=== PATIENT | female | born 1990 | race Hispanic/Latino ===

== ENCOUNTER 2021-02-26 19:53 | Emergency (ER) | payer MEDICAID ==
--- NOTE | 2021-02-26 23:39 | Emergency Department Report ---
ED General Adult HPI - General Chief complaint: Headache Stated complaint: RIGHT HIP PAIN Time Seen by Provider: 02/26/21 23:07 Source: patient Mode of arrival: Ambulatory Limitations: No Limitations - History of Present Illness Initial comments: Patient is a 31-year-old female who presents emergency room with complaints of headache and hip pain. Patient states her headaches been going on for 1 day. Patient states she has not tried any [id number] medication. Patient states that her hip pain is been going on for 3 months. Patient states she is never seen Ortho. Patient denies blurry vision. Patient denies neck pain. Patient denies fever and chills. Patient denies light sensitivity. Patient states that her headache is frontal. Patient denies nausea and vomiting. Patient denies visual changes. Patient states that her headache is a 3 out of 10. Patient states that her pain is a 4 out of 10. Patient states that her hip pain is better with rest and worse with movement. Patient states she is also having hip pain because she is been trying to walk more lately in order to lose weight. Patient states she has been under a lot of stress lately. Patient states she was at [place] to be placed into a jail but the jail kicked her out today. Patient dates she is been there for a week and a half. Patient states that she really came to the hospital because she needs a place to stay in some help getting into a jail. Patient states that the hip pain and headache are not that bad but she needed a reason to have the ambulance bring her to the hospital. Patient denies recent travel. Patient denies recent international travel. Patient denies exposure to the novel coronavirus. Patient denies sick contacts. Patient denies fever and chills. Patient denies cough. Patient denies diarrhea. Patient denies coming in contact with anybody with symptoms of the novel coronavirus. Patient denies suicidal and homicidal ideation. Patient denies hallucinations. -: Sudden Consistency: constant Associated Symptoms: headaches. denies: confusion, chest pain, cough, diaphoresis, fever/chills, loss of appetite, malaise, nausea/vomiting, rash, seizure, shortness of breath, syncope, weakness Treatments Prior to Arrival: none - Related Data Allergies Allergy/AdvReac Type Severity Reaction Status Date / Time ciprofloxacin Allergy Unknown Verified 02/26/21 21:35 ED Review of Systems ROS: Stated complaint: RIGHT HIP PAIN Other details as noted in HPI Constitutional: denies: chills, fever Eyes: denies: eye pain, eye discharge, vision change ENT: denies: ear pain, throat pain Respiratory: denies: cough, shortness of breath, wheezing Cardiovascular: denies: chest pain, palpitations Endocrine: no symptoms reported Gastrointestinal: denies: abdominal pain, nausea, diarrhea Genitourinary: denies: urgency, dysuria, discharge Musculoskeletal: denies: back pain, joint swelling, arthralgia Skin: denies: rash, lesions Neurological: headache. denies: weakness, paresthesias Psychiatric: denies: anxiety, depression, auditory hallucinations, visual hallucinations, homicidal thoughts, suicidal thoughts Hematological/Lymphatic: denies: easy bleeding, easy bruising ED Past Medical Hx - Past Medical History Previous Medical History?: Yes Hx Psychiatric Treatment: Yes (Bipolar/Depression) - Surgical History Past Surgical History?: Yes Hx Cholecystectomy: Yes Additional Surgical History: ovarian cyst removed - Family History Family history: no significant - Social History Smoking Status: Current Some Day Smoker Substance Use Type: None ED Physical Exam - General Limitations: No Limitations General appearance: alert, in no apparent distress - Head Head exam: Present: atraumatic, normocephalic - Eye Eye exam: Present: normal appearance, PERRL Pupils: Present: normal accommodation - ENT ENT exam: Present: mucous membranes moist - Neck Neck exam: Present: normal inspection - Respiratory Respiratory exam: Present: normal lung sounds bilaterally. Absent: respiratory distress - Cardiovascular Cardiovascular Exam: Present: regular rate, normal rhythm. Absent: systolic murmur, diastolic murmur, rubs, gallop - GI/Abdominal GI/Abdominal exam: Present: soft, normal bowel sounds - Extremities Exam Extremities exam: Present: normal inspection, full ROM, normal capillary refill. Absent: tenderness, pedal edema, joint swelling, calf tenderness - Back Exam Back exam: Present: normal inspection, full ROM. Absent: tenderness, CVA tend erness (R), CVA tenderness (L), muscle spasm, paraspinal tenderness - Neurological Exam Neurological exam: Present: alert, oriented X3, CN II-XII intact, normal gait. Absent: abnormal gait, motor sensory deficit - Psychiatric Psychiatric exam: Present: normal affect, normal mood - Skin Skin exam: Present: warm, dry, intact, normal color. Absent: rash ED Course Vital Signs 02/26/21 21:35 Temperature 98.3 F Pulse Rate 78 Respiratory 18 Rate Blood Pressure 128/77 O2 Sat by Pulse 94 Oximetry - Reevaluation(s) Reevaluation #1: I discussed all results and clinical findings with patient. I discussed plan of care with patient. Patient agrees with plan of care. Patient is stable for discharge. Patient will be discharged home. Patient given discharge instructions. Patient voiced understanding of discharge instructions. 02/26/21 23:36 ED Medical Decision Making - Medical Decision Making Patient is a 31-year-old female that presents emergency room with complaints of headache and head pain. Patient states her headaches been for 1 day. Patient states she is under a lot of stress. Patient had pain going on for 3 months. Patient is amatory without difficulty. Patient's neuro exam is negative. Patient states she has nowhere to go because she was kicked out of her jail today. Patient states she really came to the hospital to get help with placement. Patient is medically cleared and will be discharged home. Patient can wait in the emergency room waiting room for a social media analyst consult. A social service consult ordered. Patient not require any further medical treatment. Patient not requiring further emergency medical services. Patient not require inpatient services. - Differential Diagnosis Hip pain, headache, homelessness Critical care attestation.: If time is entered above; I have spent that time in minutes in the direct care of this critically ill patient, excluding procedure time. ED Disposition Clinical Impression: Homelessness Chronic hip pain Qualifiers: Laterality: right Qualified Code(s): M25.551 - Pain in right hip Headache Qualifiers: Headache type: unspecified Headache chronicity pattern: acute headache Intractability: not intractable Qualified Code(s): R51.9 - Headache, unspecified Disposition: DC-01 TO HOME OR SELFCARE Is pt being admited?: No Does the pt Need Aspirin: No Condition: Stable Instructions: Joint Pain, Stress, Adult, Chronic Pain (ED) Additional Instructions: Patient to follow-up with primary care in 2 to 3 days. Patient to follow-up with orthopedist in 2 to 3 days. Patient to rest. Patient to increase water. Patient to avoid strenuous exercise or heavy lifting until cleared by orthopedist and primary care. Patient to take Tylenol or ibuprofen as needed for pain. Patient to take meds as directed. Patient to return to the ER if condition worsens, changes or new symptoms arise.. Referrals: PRIMARY CAREMD [Primary Care Provider] - 2-3 Days CRISTOBAL ROBERTO MD [Staff Physician] - 2-3 Days Time of Disposition: 23:40
== END 2021-02-26 23:50 | disposition home or self-care (01) ==
LOC: ED 19:53
CPT/HCPCS: 99282